=== PATIENT | male | born 1975 | race Caucasian/White ===

== ENCOUNTER 2016-06-14 11:45 | Inpatient (IN) | payer OTHER ==
[2016-06-14 12:38] VITALS: BMI 40.6
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
[2016-06-14] MEDS ORDERED: MAG HYDROX/AL HYDROX/SIMETH 30 ML UNIT-DOSE CUP PO PRN (14:18)
[2016-06-14] MEDS ORDERED: LOPERAMIDE HCL 2 MG CAPSULE PO PRN (14:18)
[2016-06-14] MEDS ORDERED: NICOTINE POLACRILEX 4 MG GUM BUC PRN (14:18)
[2016-06-14] MEDS ORDERED: P-EPHED 60MG/TRIPROLIDI 2.5MG TABLET PO PRN (14:18)
[2016-06-14] MEDS ORDERED: ACETAMINOPHEN 325 MG TABLET (FP) PO PRN (14:18)
[2016-06-14] MEDS ORDERED: ALBUTEROL SO4 6.7 GM HFA INHALER IH PRN (14:19)
[2016-06-14] MEDS ORDERED: CYCLOBENZAPRINE HCL 10 MG TABLET (FP) PO PRN (14:21)
[2016-06-14 16:04] LABS: MCH 28.8 pg (25.7-33.7); MCHC 33.1 g/dl (32.0-35.9); MEAN CELL VOLUME 87.2 fl (80-96); PLATELET COUNT 180 K/MM3 (134-434); WHITE BLOOD COUNT 8.5 K/mm3 (4.0-10.0)
[2016-06-14 16:06] LABS: ALBUMIN 3.9 g/dl (3.4-5.0); ALK PHOS 140 U/L (45-117); ANION GAP 7 (8-16); BILIRUBIN,TOTAL 0.2 mg/dL (0.2-1.0); CALCIUM 8.6 mg/dL (8.5-10.1); CO2 30 mmol/L (21-32); CREATININE 0.9 mg/dL (0.7-1.3); GLUCOSE,RANDOM 78 mg/dL (74-106); SGOT/AST 33 U/L (15-37); SGPT/ALT 32 U/L (12-78); TOT PROT 6.6 g/dl (6.4-8.2)
[2016-06-14] MEDS ORDERED: TUBERCULIN PPD 5 TU/0.1ML VIAL ID ONE (19:20)
[2016-06-14 20:33] LABS: URINE APPEARANCE CLEAR; URINE BILIRUBIN NEGATIVE (NEGATIVE); URINE BLOOD NEGATIVE (NEGATIVE); URINE COLOR STRAW; URINE GLUCOSE (UA) NEGATIVE (NEGATIVE); URINE KETONE NEGATIVE (NEGATIVE); URINE LEUK ESTERASE NEGATIVE (NEGATIVE); URINE NITRITE NEGATIVE (NEGATIVE); URINE PROTEIN NEGATIVE (NEGATIVE); URINE UROBILINOGEN NEGATIVE E.U./dl (0.2-1.0)
[2016-06-14] MEDS ORDERED: NAPROXEN 500 MG TABLET (FP) PO SCH (22:00)
[2016-06-14] MEDS: PANTOPRAZOLE 20 MG TABLET (FP) PO SCH (22:06)
[2016-06-14] MEDS: THIAMINE HCL 100 MG TABLET (FP) PO SCH (22:06)
[2016-06-14] MEDS: NAPROXEN 500 MG TABLET (FP) PO SCH (22:06)
[2016-06-15] MEDS: diphenhydrAMINE HCL 50 MG CAPSULE PO PRN (01:17)
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
[2016-06-15] MEDS ORDERED: METHADONE HCL 40 MG DISPERSABLE TABLET PO SCH (07:45)
[2016-06-15] MEDS ORDERED: METHADONE 120 MG, METHADONE 5 MG PO SCH (09:25)
--- NOTE | 2016-06-15 09:51 | PN ---
Psychiatric Progress Note Vital Signs: Vital Signs Period Temp Pulse Resp BP Sys/Chowdhury Pulse Ox Last 24 Hr 97.4 F 56 18-22 113/64 Date of Session: 06/15/16 Chief Complaint:: Psychiatrist Discharge Note HPI: Patient addressing Alcohol Dependence comorbid with Nicotine Dependence and Anxiety Disorder Current Medications: Active Medications Generic Name Dose Route Start Last Admin Trade Name Freq PRN Reason Stop Dose Admin Acetaminophen 650 mg 06/14/16 14:18 Tylenol - PO Q4H PRN PAIN Al Hydroxide/Mg Hydroxide 30 ml 06/14/16 14:18 Mylanta Oral Suspension - PO Q6H PRN DYSPEPSIA Albuterol Sulfate 2 puff 06/14/16 14:19 Ventolin Hfa Inhaler - IH Q4H PRN ASTHMA Cyclobenzaprine HCl 10 mg 06/14/16 14:21 Flexeril - PO TID PRN MUSCLE SPASMS Diphenhydramine HCl 50 mg 06/14/16 22:00 06/15/16 01:17 Benadryl - PO 50 mg HSMR1 PRN Administration INSOMNIA Eucalyptus/Menthol/Phenol/Sorbitol 1 each 06/14/16 14:18 Cepastat Lozenge - MM Q4H PRN SORE THROAT Guaifenesin 10 ml 06/14/16 14:18 Robitussin Dm - PO Q6H PRN COUGH Hydroxyzine Pamoate 50 mg 06/14/16 14:18 Vistaril - PO Q4H PRN AGITATION Loperamide HCl 4 mg 06/14/16 14:18 Imodium - PO Q6H PRN DIARRHEA Magnesium Citrate 300 ml 06/14/16 14:18 Citroma - PO Q48H PRN CONSTIPATION Magnesium Hydroxide 30 ml 06/14/16 14:18 Milk Of Magnesia - PO DAILY PRN CONSTIPATION Methadone HCl 120 mg/ 125 mg 06/15/16 09:25 Methadone HCl 5 mg PO DAILY@0600 JAKE Naproxen 500 mg 06/14/16 22:00 06/14/16 22:06 Naprosyn - PO Not Given BID JAKE Nicotine 21 mg 06/15/16 10:00 Nicoderm Patch - TD DAILY JAKE Nicotine Polacrilex 4 mg 06/14/16 14:18 Nicorette Gum - BUC Q2H PRN NICOTINE REPLACEMENT RX Pantoprazole Sodium 20 mg 06/14/16 22:00 06/14/16 22:06 Protonix - PO Not Given BID JAKE Multivit/Folic Acid/Iron 1 tab 06/15/16 10:00 Vitamins (Sjr) - PO DAILY JAKE Pseudoephedrine/Triprolidine 1 combo 06/14/16 14:18 Actifed - PO TID PRN NASAL CONGESTION Thiamine HCl 100 mg 06/14/16 22:00 06/14/16 22:06 Vitamin B1 - PO Not Given HS JAKE Current Side Effect: No Lab tests ordered: Yes Lab tests reviewed: Yes Provider note:: Patient will complete this program on 06/16/16. He has met his treatment goals and will continue to address his issues in outpatient treatment at [facility] at [address] [place] [address]. He is stablefor discharge on 06/16/16 Total face to face time:: 35 Psychiatric Treatment Plan - Problem List (1) Cocaine dependence Current Visit: Yes (2) Cannabis dependence Current Visit: Yes (3) PCP dependence Current Visit: Yes (4) Opioid dependence on agonist therapy Current Visit: Yes (5) Nicotine dependence Current Visit: Yes Qualifiers: Nicotine product type: cigarettes Substance use status: uncomplicated Qualified Code(s): F17.210 - Nicotine dependence, cigarettes, uncomplicated
[2016-06-15] MEDS ORDERED: METHADONE HCL 5 MG TABLET ONE (10:02)
[2016-06-15] MEDS ORDERED: METHADONE HCL 40 MG DISPERSABLE TABLET ONE (10:02)
[2016-06-15] MEDS: PRENATAL VITAMINS W/ FOLIC ACID TABLET (FP) PO SCH (10:10)
[2016-06-15] MEDS: NAPROXEN 500 MG TABLET (FP) PO SCH ×2 (10:10→21:44)
[2016-06-15] MEDS: PANTOPRAZOLE 20 MG TABLET (FP) PO SCH ×2 (10:10→21:44)
[2016-06-15] MEDS: NICOTINE 21 MG/24 HOURS TOPICAL PATCH TD SCH (10:11)
[2016-06-15 12:15] LABS: HIV 1 & 2 AB NEGATIVE; HIV 1 AGp24 NEGATIVE
--- NOTE | 2016-06-15 12:42 | EKG ---
Test Reason : Blood Pressure : / mmHG Vent. Rate : 059 BPM Atrial Rate : 059 BPM P-R Int : 152 ms QRS Dur : 124 ms QT Int : 458 ms P-R-T Axes : 045 027 025 degrees QTc Int : 453 ms SINUS BRADYCARDIA RSR' OR QR PATTERN IN V1 SUGGESTS RIGHT VENTRICULAR CONDUCTION DELAY BORDERLINE ECG NO PREVIOUS ECGS AVAILABLE Confirmed by ARGELIA RAI MD ([id number]) on 06/15/2016 12:41:50 PM Referred By: Confirmed By:ARGELIA RAI MD
[2016-06-15] MEDS: hydrOXYzine PAMOATE 50 MG CAPSULE (FP) PO PRN (15:32)
[2016-06-15] MEDS: traZODone HCL 100 MG TABLET (FP) PO SCH (21:44)
[2016-06-15] MEDS: THIAMINE HCL 100 MG TABLET (FP) PO SCH (21:44)
[2016-06-15] MEDS ORDERED: PT OWN MED DRAWER 7, Y5N ONE (23:56)
[2016-06-16] MEDS ORDERED: METHADONE HCL 10 MG TABLET ONE (05:45)
[2016-06-16] MEDS ORDERED: METHADONE HCL 5 MG TABLET ONE (05:45)
[2016-06-16] MEDS ORDERED: METHADONE HCL 40 MG DISPERSABLE TABLET ONE (05:45)
[2016-06-16] MEDS ORDERED: METHADONE HCL 40 MG DISPERSABLE TABLET PO SCH (06:00)
[2016-06-16] MEDS: METHADONE 80 MG, METHADONE 30 MG, METHADONE 5 MG PO SCH (06:56)
[2016-06-16] MEDS: MAGNESIUM HYDROX 2400MG/30ML ORAL SUSPENSION 30 ML CUP PO PRN (06:57)
[2016-06-16] MEDS: NAPROXEN 500 MG TABLET (FP) PO SCH ×2 (09:56→21:37)
[2016-06-16] MEDS: PRENATAL VITAMINS W/ FOLIC ACID TABLET (FP) PO SCH (09:56)
[2016-06-16] MEDS: PANTOPRAZOLE 20 MG TABLET (FP) PO SCH ×2 (09:56→21:38)
[2016-06-16] MEDS: NICOTINE 21 MG/24 HOURS TOPICAL PATCH TD SCH (09:56)
[2016-06-16] MEDS: hydrOXYzine PAMOATE 50 MG CAPSULE (FP) PO PRN (18:04)
[2016-06-16] MEDS: THIAMINE HCL 100 MG TABLET (FP) PO SCH (21:37)
[2016-06-16] MEDS: guaiFENesin/D-METHORPHAN HB 10 ML UNIT-DOSE CUPS PO PRN (21:38)
[2016-06-16] MEDS: traZODone HCL 100 MG TABLET (FP) PO SCH (21:38)
[2016-06-16] MEDS: MENTHOL/PHENOL 1 EACH UD MM PRN (21:38)
[2016-06-17] MEDS ORDERED: METHADONE HCL 10 MG TABLET ONE (04:58)
[2016-06-17] MEDS ORDERED: METHADONE HCL 40 MG DISPERSABLE TABLET ONE (04:58)
[2016-06-17] MEDS ORDERED: METHADONE HCL 5 MG TABLET ONE (04:59)
[2016-06-17] MEDS: METHADONE 80 MG, METHADONE 30 MG, METHADONE 5 MG PO SCH (06:47)
[2016-06-17] MEDS: guaiFENesin/D-METHORPHAN HB 10 ML UNIT-DOSE CUPS PO PRN ×2 (06:51→15:46)
[2016-06-17] MEDS: MENTHOL/PHENOL 1 EACH UD MM PRN ×2 (06:52→15:46)
[2016-06-17] MEDS: PRENATAL VITAMINS W/ FOLIC ACID TABLET (FP) PO SCH (10:00)
[2016-06-17] MEDS: NAPROXEN 500 MG TABLET (FP) PO SCH ×2 (10:13→21:35)
[2016-06-17] MEDS: PANTOPRAZOLE 20 MG TABLET (FP) PO SCH ×2 (10:14→21:34)
[2016-06-17] MEDS: NICOTINE 21 MG/24 HOURS TOPICAL PATCH TD SCH (10:14)
[2016-06-17] MEDS: traZODone HCL 100 MG TABLET (FP) PO SCH (21:34)
[2016-06-17] MEDS: diphenhydrAMINE HCL 50 MG CAPSULE PO PRN (21:34)
[2016-06-17] MEDS: THIAMINE HCL 100 MG TABLET (FP) PO SCH (21:34)
[2016-06-18] MEDS ORDERED: METHADONE HCL 10 MG TABLET ONE (04:19)
[2016-06-18] MEDS ORDERED: METHADONE HCL 5 MG TABLET ONE (04:19)
[2016-06-18] MEDS ORDERED: METHADONE HCL 40 MG DISPERSABLE TABLET ONE (04:19)
[2016-06-18] MEDS: METHADONE 80 MG, METHADONE 30 MG, METHADONE 5 MG PO SCH (05:54)
[2016-06-18] MEDS: NAPROXEN 500 MG TABLET (FP) PO SCH ×2 (10:04→22:08)
[2016-06-18] MEDS: PRENATAL VITAMINS W/ FOLIC ACID TABLET (FP) PO SCH (10:04)
[2016-06-18] MEDS: NICOTINE 21 MG/24 HOURS TOPICAL PATCH TD SCH (10:04)
[2016-06-18] MEDS: PANTOPRAZOLE 20 MG TABLET (FP) PO SCH ×2 (10:04→22:08)
[2016-06-18] MEDS: hydrOXYzine PAMOATE 50 MG CAPSULE (FP) PO PRN (17:32)
[2016-06-18] MEDS: traZODone HCL 100 MG TABLET (FP) PO SCH (22:08)
[2016-06-18] MEDS: THIAMINE HCL 100 MG TABLET (FP) PO SCH (22:08)
[2016-06-18] MEDS: diphenhydrAMINE HCL 50 MG CAPSULE PO PRN (22:08)
[2016-06-19] MEDS ORDERED: METHADONE HCL 10 MG TABLET ONE (05:32)
[2016-06-19] MEDS ORDERED: METHADONE HCL 5 MG TABLET ONE (05:32)
[2016-06-19] MEDS ORDERED: METHADONE HCL 40 MG DISPERSABLE TABLET ONE (05:32)
[2016-06-19] MEDS: METHADONE 80 MG, METHADONE 30 MG, METHADONE 5 MG PO SCH (06:01)
[2016-06-19] MEDS: PANTOPRAZOLE 20 MG TABLET (FP) PO SCH ×2 (09:53→21:29)
[2016-06-19] MEDS: NAPROXEN 500 MG TABLET (FP) PO SCH ×2 (09:53→21:29)
[2016-06-19] MEDS: PRENATAL VITAMINS W/ FOLIC ACID TABLET (FP) PO SCH (09:53)
[2016-06-19] MEDS: hydrOXYzine PAMOATE 50 MG CAPSULE (FP) PO PRN ×2 (09:55→15:59)
[2016-06-19] MEDS: MAGNESIUM HYDROX 2400MG/30ML ORAL SUSPENSION 30 ML CUP PO PRN (09:55)
[2016-06-19] MEDS: NICOTINE 21 MG/24 HOURS TOPICAL PATCH TD SCH (14:46)
[2016-06-19] MEDS: THIAMINE HCL 100 MG TABLET (FP) PO SCH (21:28)
[2016-06-19] MEDS: traZODone HCL 100 MG TABLET (FP) PO SCH (21:29)
[2016-06-19] MEDS: diphenhydrAMINE HCL 50 MG CAPSULE PO PRN (21:29)
[2016-06-20] MEDS ORDERED: METHADONE HCL 5 MG TABLET ONE (05:23)
[2016-06-20] MEDS ORDERED: METHADONE HCL 10 MG TABLET ONE (05:23)
[2016-06-20] MEDS ORDERED: METHADONE HCL 40 MG DISPERSABLE TABLET ONE (05:23)
[2016-06-20] MEDS: METHADONE 80 MG, METHADONE 30 MG, METHADONE 5 MG PO SCH (06:17)
[2016-06-20] MEDS: NICOTINE 21 MG/24 HOURS TOPICAL PATCH TD SCH (09:52)
[2016-06-20] MEDS: NAPROXEN 500 MG TABLET (FP) PO SCH ×2 (09:53→22:02)
[2016-06-20] MEDS: PRENATAL VITAMINS W/ FOLIC ACID TABLET (FP) PO SCH (09:53)
[2016-06-20] MEDS: PANTOPRAZOLE 20 MG TABLET (FP) PO SCH ×2 (09:53→22:02)
[2016-06-20] MEDS: MAGNESIUM CITRATE 300 ML BOTTLE PO PRN (14:25)
[2016-06-20] MEDS: traZODone HCL 100 MG TABLET (FP) PO SCH (22:02)
[2016-06-20] MEDS: THIAMINE HCL 100 MG TABLET (FP) PO SCH (22:02)
[2016-06-21] MEDS ORDERED: METHADONE HCL 10 MG TABLET ONE (03:14)
[2016-06-21] MEDS ORDERED: METHADONE HCL 40 MG DISPERSABLE TABLET ONE (03:14)
[2016-06-21] MEDS ORDERED: METHADONE HCL 5 MG TABLET ONE (03:14)
[2016-06-21] MEDS: METHADONE 80 MG, METHADONE 30 MG, METHADONE 5 MG PO SCH (06:08)
[2016-06-21] MEDS: NICOTINE 21 MG/24 HOURS TOPICAL PATCH TD SCH (10:07)
[2016-06-21] MEDS: PANTOPRAZOLE 20 MG TABLET (FP) PO SCH ×2 (10:07→21:04)
[2016-06-21] MEDS: NAPROXEN 500 MG TABLET (FP) PO SCH ×2 (10:07→21:04)
[2016-06-21] MEDS: PRENATAL VITAMINS W/ FOLIC ACID TABLET (FP) PO SCH (10:07)
[2016-06-21] MEDS: hydrOXYzine PAMOATE 50 MG CAPSULE (FP) PO PRN ×2 (10:09→14:15)
[2016-06-21] MEDS: THIAMINE HCL 100 MG TABLET (FP) PO SCH (21:04)
[2016-06-21] MEDS: traZODone HCL 100 MG TABLET (FP) PO SCH (21:04)
[2016-06-22] MEDS ORDERED: METHADONE HCL 10 MG TABLET ONE (05:54)
[2016-06-22] MEDS ORDERED: METHADONE HCL 40 MG DISPERSABLE TABLET ONE (05:54)
[2016-06-22] MEDS ORDERED: METHADONE HCL 5 MG TABLET ONE (05:55)
[2016-06-22] MEDS: METHADONE 80 MG, METHADONE 30 MG, METHADONE 5 MG PO SCH (06:30)
[2016-06-22] MEDS: PANTOPRAZOLE 20 MG TABLET (FP) PO SCH ×2 (10:01→22:13)
[2016-06-22] MEDS: NICOTINE 21 MG/24 HOURS TOPICAL PATCH TD SCH (10:01)
[2016-06-22] MEDS: PRENATAL VITAMINS W/ FOLIC ACID TABLET (FP) PO SCH (10:01)
[2016-06-22] MEDS: NAPROXEN 500 MG TABLET (FP) PO SCH ×2 (10:01→22:13)
[2016-06-22] MEDS: hydrOXYzine PAMOATE 50 MG CAPSULE (FP) PO PRN (10:02)
[2016-06-22] MEDS: THIAMINE HCL 100 MG TABLET (FP) PO SCH (22:12)
[2016-06-22] MEDS: traZODone HCL 100 MG TABLET (FP) PO SCH (22:13)
[2016-06-23] MEDS ORDERED: METHADONE HCL 40 MG DISPERSABLE TABLET ONE (04:12)
[2016-06-23] MEDS ORDERED: METHADONE HCL 10 MG TABLET ONE (04:12)
[2016-06-23] MEDS ORDERED: METHADONE HCL 5 MG TABLET ONE (04:12)
[2016-06-23] MEDS: METHADONE 80 MG, METHADONE 30 MG, METHADONE 5 MG PO SCH (06:41)
[2016-06-23] MEDS: hydrOXYzine PAMOATE 50 MG CAPSULE (FP) PO PRN (09:51)
[2016-06-23] MEDS: PANTOPRAZOLE 20 MG TABLET (FP) PO SCH ×2 (09:51→21:59)
[2016-06-23] MEDS: PRENATAL VITAMINS W/ FOLIC ACID TABLET (FP) PO SCH (09:51)
[2016-06-23] MEDS: NAPROXEN 500 MG TABLET (FP) PO SCH ×2 (09:52→21:59)
[2016-06-23] MEDS: NICOTINE 21 MG/24 HOURS TOPICAL PATCH TD SCH (09:53)
[2016-06-23] MEDS: MAGNESIUM CITRATE 300 ML BOTTLE PO PRN (18:46)
[2016-06-23] MEDS: diphenhydrAMINE HCL 50 MG CAPSULE PO PRN (21:59)
[2016-06-23] MEDS: traZODone HCL 100 MG TABLET (FP) PO SCH (21:59)
[2016-06-23] MEDS: THIAMINE HCL 100 MG TABLET (FP) PO SCH (21:59)
[2016-06-24] MEDS ORDERED: METHADONE HCL 40 MG DISPERSABLE TABLET ONE (03:11)
[2016-06-24] MEDS ORDERED: METHADONE HCL 10 MG TABLET ONE (03:11)
[2016-06-24] MEDS ORDERED: METHADONE HCL 5 MG TABLET ONE (03:12)
[2016-06-24] MEDS: METHADONE 80 MG, METHADONE 30 MG, METHADONE 5 MG PO SCH (06:13)
[2016-06-24] MEDS: PRENATAL VITAMINS W/ FOLIC ACID TABLET (FP) PO SCH (09:43)
[2016-06-24] MEDS: NAPROXEN 500 MG TABLET (FP) PO SCH ×2 (09:43→21:38)
[2016-06-24] MEDS: PANTOPRAZOLE 20 MG TABLET (FP) PO SCH ×2 (09:43→21:38)
[2016-06-24] MEDS: hydrOXYzine PAMOATE 50 MG CAPSULE (FP) PO PRN (09:43)
[2016-06-24] MEDS: NICOTINE 21 MG/24 HOURS TOPICAL PATCH TD SCH (09:44)
--- NOTE | 2016-06-24 12:07 | PN ---
B[facility] Progress Note Note: VARICOSE VEIN LEGS.WOULD LIKE METHADONE TO REDUCE TO 105 MGS PO DAILY FROM 06/25
[2016-06-24] MEDS: diphenhydrAMINE HCL 50 MG CAPSULE PO PRN (21:38)
[2016-06-24] MEDS: traZODone HCL 100 MG TABLET (FP) PO SCH (21:38)
[2016-06-24] MEDS: THIAMINE HCL 100 MG TABLET (FP) PO SCH (21:39)
[2016-06-25] MEDS ORDERED: METHADONE HCL 40 MG DISPERSABLE TABLET ONE (05:44)
[2016-06-25] MEDS ORDERED: METHADONE HCL 10 MG TABLET ONE (05:44)
[2016-06-25] MEDS ORDERED: METHADONE HCL 5 MG TABLET ONE (05:44)
[2016-06-25] MEDS ORDERED: METHADONE HCL 10 MG TABLET PO SCH (06:00)
[2016-06-25] MEDS ORDERED: METHADONE 80 MG, METHADONE 20 MG, METHADONE 5 MG PO SCH ×2 (06:00)
[2016-06-25] MEDS: METHADONE 80 MG, METHADONE 20 MG, METHADONE 5 MG PO SCH (06:26)
[2016-06-25] MEDS: NAPROXEN 500 MG TABLET (FP) PO SCH ×2 (09:43→21:59)
[2016-06-25] MEDS: PANTOPRAZOLE 20 MG TABLET (FP) PO SCH ×2 (09:43→21:59)
[2016-06-25] MEDS: PRENATAL VITAMINS W/ FOLIC ACID TABLET (FP) PO SCH (09:43)
[2016-06-25] MEDS: NICOTINE 21 MG/24 HOURS TOPICAL PATCH TD SCH (09:43)
[2016-06-25] MEDS: THIAMINE HCL 100 MG TABLET (FP) PO SCH (21:58)
[2016-06-25] MEDS: traZODone HCL 100 MG TABLET (FP) PO SCH (21:59)
[2016-06-26] MEDS ORDERED: METHADONE HCL 5 MG TABLET ONE (05:22)
[2016-06-26] MEDS ORDERED: METHADONE HCL 10 MG TABLET ONE (05:22)
[2016-06-26] MEDS ORDERED: METHADONE HCL 40 MG DISPERSABLE TABLET ONE (05:22)
[2016-06-26] MEDS: METHADONE 80 MG, METHADONE 20 MG, METHADONE 5 MG PO SCH (07:15)
[2016-06-26] MEDS: MAGNESIUM HYDROX 2400MG/30ML ORAL SUSPENSION 30 ML CUP PO PRN (07:19)
[2016-06-26] MEDS: PANTOPRAZOLE 20 MG TABLET (FP) PO SCH ×2 (09:37→21:48)
[2016-06-26] MEDS: PRENATAL VITAMINS W/ FOLIC ACID TABLET (FP) PO SCH (09:37)
[2016-06-26] MEDS: NAPROXEN 500 MG TABLET (FP) PO SCH ×2 (09:38→21:48)
[2016-06-26] MEDS: NICOTINE 21 MG/24 HOURS TOPICAL PATCH TD SCH (09:38)
[2016-06-26] MEDS: hydrOXYzine PAMOATE 50 MG CAPSULE (FP) PO PRN (11:32)
[2016-06-26] MEDS: THIAMINE HCL 100 MG TABLET (FP) PO SCH (21:47)
[2016-06-26] MEDS: traZODone HCL 100 MG TABLET (FP) PO SCH (21:48)
[2016-06-27] MEDS ORDERED: METHADONE HCL 10 MG TABLET ONE (05:41)
[2016-06-27] MEDS ORDERED: METHADONE HCL 5 MG TABLET ONE (05:41)
[2016-06-27] MEDS ORDERED: METHADONE HCL 40 MG DISPERSABLE TABLET ONE (05:41)
[2016-06-27] MEDS: METHADONE 80 MG, METHADONE 20 MG, METHADONE 5 MG PO SCH (06:01)
[2016-06-27] MEDS: PRENATAL VITAMINS W/ FOLIC ACID TABLET (FP) PO SCH (10:00)
[2016-06-27] MEDS: NAPROXEN 500 MG TABLET (FP) PO SCH ×2 (10:00→21:17)
[2016-06-27] MEDS: PANTOPRAZOLE 20 MG TABLET (FP) PO SCH ×2 (10:00→21:18)
[2016-06-27] MEDS: NICOTINE 21 MG/24 HOURS TOPICAL PATCH TD SCH (10:01)
[2016-06-27] MEDS ORDERED: ARTIFICIAL TEARS (POLYVINYL ALCOHOL 1.4%) OPTH DROPS OU PRN (14:26)
--- NOTE | 2016-06-27 16:35 | PN ---
[id number] 66 16-18 140/92 Date of Session: 06/27/16 Chief Complaint:: Discharge visit HPI: Patient addresed Cannabis,Cocaine and Opioid,PCP dependence comorbid with Substance induced mood dsorder. ROS: Significant for BA,GERD. Current Medications: Active Medications Generic Name Dose Route Start Last Admin Trade Name Freq PRN Reason Stop Dose Admin Acetaminophen 650 mg 06/14/16 14:18 Tylenol - PO Q4H PRN PAIN Al Hydroxide/Mg Hydroxide 30 ml 06/14/16 14:18 06/25/16 20:17 Mylanta Oral Suspension - PO 30 ml Q6H PRN Administration DYSPEPSIA Albuterol Sulfate 2 puff 06/14/16 14:19 06/18/16 07:01 Ventolin Hfa Inhaler - IH 2 inh Q4H PRN Administration ASTHMA Artificial Tears 1 drop 06/27/16 14:26 Artificial Tears OU TID PRN DRY EYES Cyclobenzaprine HCl 10 mg 06/14/16 14:21 06/21/16 17:09 Flexeril - PO 10 mg TID PRN Administration MUSCLE SPASMS Diphenhydramine HCl 50 mg 06/14/16 22:00 06/24/16 21:38 Benadryl - PO 50 mg HSMR1 PRN Administration INSOMNIA Eucalyptus/Menthol/Phenol/Sorbitol 1 each 06/14/16 14:18 06/17/16 15:46 Cepastat Lozenge - MM 1 each Q4H PRN Administration SORE THROAT Guaifenesin 10 ml 06/14/16 14:18 06/17/16 15:46 Robitussin Dm - PO 10 ml Q6H PRN Administration COUGH Hydroxyzine Pamoate 50 mg 06/14/16 14:18 06/26/16 11:32 Vistaril - PO 50 mg Q4H PRN Administration AGITATION Loperamide HCl 4 mg 06/14/16 14:18 Imodium - PO Q6H PRN DIARRHEA Magnesium Citrate 300 ml 06/14/16 14:18 06/23/16 18:46 Citroma - PO 300 ml Q48H PRN Administration CONSTIPATION Magnesium Hydroxide 30 ml 06/14/16 14:18 06/26/16 07:19 Milk Of Magnesia - PO 30 ml DAILY PRN Administration CONSTIPATION Methadone HCl 80 mg/ Methadone 105 mg 06/25/16 06:00 06/27/16 06:01 HCl 20 mg/ Methadone HCl 5 mg PO 07/01/16 05:59 105 mg DAILY@0600 JAKE Administration Naproxen 500 mg 06/14/16 22:00 06/27/16 10:00 Naprosyn - PO 500 mg BID JAKE Administration Nicotine 21 mg 06/15/16 10:00 06/27/16 10:01 Nicoderm Patch - TD Not Given DAILY JAKE Nicotine Polacrilex 4 mg 06/14/16 14:18 06/15/16 20:47 Nicorette Gum - BUC 4 mg Q2H PRN Administration NICOTINE REPLACEMENT RX Pantoprazole Sodium 20 mg 06/14/16 22:00 06/27/16 10:00 Protonix - PO 20 mg BID JAKE Administration Multivit/Folic Acid/Iron 1 tab 06/15/16 10:00 06/27/16 10:00 Vitamins (Sjr) - PO 1 tab DAILY JAKE Administration Pseudoephedrine/Triprolidine 1 combo 06/14/16 14:18 Actifed - PO TID PRN NASAL CONGESTION Thiamine HCl 100 mg 06/14/16 22:00 06/26/16 21:47 Vitamin B1 - PO 100 mg HS JAKE Administration Trazodone HCl 100 mg 06/15/16 22:00 06/26/16 21:48 Desyrel - PO 100 mg HS JAKE Administration Current Side Effect: No Lab tests ordered: No Lab tests reviewed: Yes Provider note:: Patient will completed this program tomorrow 06/28/16.He has met his treatment goals and will continue to address his issues on outpatient basis. Patient identifies areas of difficulties and ways,support he can utilize to maintain recovery. Patient is stable for discharge tomorrow. Total face to face time:: 30 Mental Status Exam - Mental Status Exam Cognitive Function: Grossly Intact Patient Appearance: Well Groomed Mood: Expansive, Euthymic Affect: Mood Congruent Patient Behavior: Cooperative Speech Pattern: Clear Voice Loudness: Normal Thought Process: Goal Oriented Thought Disorder: Not Present Hallucinations: Denies Suicidal Ideation: Denies Homicidal Ideation: Denies Insight/Judgement: Fair Sleep: Fair Appetite: Good Muscle strength/Tone: Normal Gait/Station: Normal Psychiatric Treatment Plan - Problem List (7) Bronchial asthma Qualifiers: Asthma severity: mild intermittent Asthma complication type: uncomplicated Qualified Code(s): J45.20 - Mild intermittent asthma, uncomplicated
[2016-06-27] MEDS: traZODone HCL 100 MG TABLET (FP) PO SCH (21:16)
[2016-06-27] MEDS: THIAMINE HCL 100 MG TABLET (FP) PO SCH (21:16)
[2016-06-27] MEDS: hydrOXYzine PAMOATE 50 MG CAPSULE (FP) PO PRN (21:18)
[2016-06-28] MEDS ORDERED: METHADONE HCL 40 MG DISPERSABLE TABLET ONE (04:08)
[2016-06-28] MEDS ORDERED: METHADONE HCL 10 MG TABLET ONE (04:08)
[2016-06-28] MEDS ORDERED: METHADONE HCL 5 MG TABLET ONE (04:09)
[2016-06-28] MEDS: METHADONE 80 MG, METHADONE 20 MG, METHADONE 5 MG PO SCH (06:48)
[2016-06-28 07:12] VITALS: BP 135/82; PULSE 76; TEMP 98.2
[2016-06-28] MEDS ORDERED: PT OWN MED DRAWER 7, Y5N ONE (08:48)
== END 2016-06-28 08:45 | disposition home or self-care (01) | DRG 772 ==
LOC: YASAS 11:45 → Y3W 15:09
PROVIDERS: ADMIT Psychiatry & Neurology Psychiatry; ATTEND Psychiatry & Neurology Psychiatry
PROC: HZ42ZZZ Group Counseling for Substance Abuse Treatment, Cognitive-Behavioral (ICD-10-PCS; principal; 2016-06-28)
DX: F11.20 Opioid dependence, uncomplicated (principal); F14.20 Cocaine dependence, uncomplicated; F16.20 Hallucinogen dependence, uncomplicated; F12.20 Cannabis dependence, uncomplicated; F17.210 Nicotine dependence, cigarettes, uncomplicated; F19.24 Other psychoactive substance dependence with psychoactive substance-induced mood disorder; K21.9 Gastro-esophageal reflux disease without esophagitis; M23.207 Derangement of unspecified meniscus due to old tear or injury, left knee; M23.206 Derangement of unspecified meniscus due to old tear or injury, right knee
CPT/HCPCS: 36415; 80053; 81003; 85027; 86593; 87389; 93005; 93010

== ENCOUNTER 2017-09-02 14:56 | Inpatient (IN) | payer OTHER ==
[2017-09-02 16:31] VITALS: BMI 45.2
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
[2017-09-02] MEDS ORDERED: MAGNESIUM CITRATE 300 ML BOTTLE PO PRN (18:31)
[2017-09-02] MEDS ORDERED: LOPERAMIDE HCL 2 MG CAPSULE PO PRN (18:31)
[2017-09-02] MEDS ORDERED: P-EPHED 60MG/TRIPROLIDI 2.5MG TABLET PO PRN (18:31)
[2017-09-02] MEDS ORDERED: MENTHOL/PHENOL 1 EACH UD MM PRN (18:31)
[2017-09-02] MEDS ORDERED: hydrOXYzine PAMOATE 50 MG CAPSULE (FP) PO PRN (18:31)
[2017-09-02] MEDS ORDERED: guaiFENesin/D-METHORPHAN HB 10 ML UNIT-DOSE CUPS PO PRN (18:31)
[2017-09-02] MEDS ORDERED: chlordiazePOXIDE HCL 25 MG CAPSULE PO PRN (18:31)
[2017-09-02] MEDS ORDERED: ACETAMINOPHEN 325 MG TABLET (FP) PO PRN (18:31)
[2017-09-02] MEDS ORDERED: IBUPROFEN 400 MG TABLET (FP) PO PRN (18:31)
[2017-09-02] MEDS ORDERED: MAG HYDROX/AL HYDROX/SIMETH 30 ML UNIT-DOSE CUP PO PRN (18:31)
[2017-09-02] MEDS ORDERED: MAGNESIUM HYDROX 2400MG/30ML ORAL SUSPENSION 30 ML CUP PO PRN (18:31)
[2017-09-02] MEDS ORDERED: HYDROCORTISONE 0.5% TOPICAL CREAM 30 GM TUBE TP PRN (18:37)
[2017-09-02] MEDS ORDERED: ALBUTEROL SO4 18 GM HFA INHALER IH PRN (19:07)
[2017-09-02] MEDS: NICOTINE 14 MG/24 HOURS TOPICAL PATCH TD SCH (19:29)
--- NOTE | 2017-09-02 19:39 | PN ---
S Progress Note Note: Pt's EKG abnormal. Pt A & O x 3, denies any complaint at this time, eating and ambulating without distress on floor. Aspirin ordered. Will repeat EKG in a.m
[2017-09-02] MEDS ORDERED: ASPIRIN 81 MG CHEWABLE TABLETS PO ONE (19:45)
[2017-09-02] MEDS ORDERED: THIAMINE HCL 100 MG TABLET (FP) PO SCH (22:00)
[2017-09-02] MEDS ORDERED: MELATONIN 5 MG TABLETS PO PRN (22:00)
[2017-09-02] MEDS: chlordiazePOXIDE HCL 25 MG CAPSULE PO SCH (23:13)
[2017-09-03] MEDS: chlordiazePOXIDE HCL 25 MG CAPSULE PO SCH ×2 (06:17→10:21)
[2017-09-03 09:59] LABS: HEMOGLOBIN 15.5 GM/dL (11.7-16.9); MCH 28.9 pg (25.7-33.7); MEAN CELL VOLUME 87.6 fl (80-96); MEAN PLT VOLUME 9.8 fl (7.5-11.1); PLATELET COUNT 134 K/MM3 (134-434); RBC 5.36 M/mm3 (4.00-5.60); RDW 14.1 % (11.9-15.9)
[2017-09-03] MEDS ORDERED: PRENATAL VITAMINS W/ FOLIC ACID TABLET (FP) PO SCH (10:00)
[2017-09-03 10:06] LABS: URINE APPEARANCE TURBID; URINE BILIRUBIN NEGATIVE (<2.0 mg/dL); URINE BLOOD 1+ (NEGATIVE); URINE COLOR AMBER; URINE GLUCOSE (UA) NEGATIVE (NEGATIVE); URINE KETONE NEGATIVE (NEGATIVE); URINE LEUK ESTERASE NEGATIVE (NEGATIVE); URINE NITRITE NEGATIVE (NEGATIVE); URINE UROBILINOGEN NEGATIVE mg/dL (0.2-1.0)
[2017-09-03 10:08] LABS: URINE PROTEIN 1+ (NEGATIVE)
[2017-09-03 10:12] LABS: URINE MUCUS RARE
[2017-09-03 10:15] LABS: CHLORIDE 110 mmol/L (98-107); POTASSIUM 4.4 mmol/L (3.5-5.1); SODIUM 142 mmol/L (136-145)
[2017-09-03 10:22] LABS: ALBUMIN 3.7 g/dl (3.4-5.0); ALK PHOS 135 U/L (45-117); ANION GAP 4 (8-16); BILIRUBIN,TOTAL 0.3 mg/dL (0.2-1.0); BLOOD UREA NITROGEN 17 mg/dL (7-18); CALCIUM 8.4 mg/dL (8.5-10.1); CO2 28 mmol/L (21-32); CREATININE 0.8 mg/dL (0.7-1.3); GLUCOSE,RANDOM 122 mg/dL (74-106); SGOT/AST 22 U/L (15-37); SGPT/ALT 21 U/L (12-78); TOT PROT 6.3 g/dl (6.4-8.2)
[2017-09-03] MEDS: NICOTINE 14 MG/24 HOURS TOPICAL PATCH TD SCH (10:24)
[2017-09-03] MEDS ORDERED: METHADONE HCL 10 MG TABLET (FOR DETOX USE ONLY) PO ONE (12:07)
[2017-09-03] MEDS ORDERED: METHADONE HCL 5 MG TABLET (FOR DETOX USE ONLY) ONE (12:25)
[2017-09-03] MEDS ORDERED: METHADONE HCL 40 MG DISPERSABLE TABLET ONE (12:26)
[2017-09-03] MEDS ORDERED: METHADONE PO ONE (12:30)
--- NOTE | 2017-09-03 15:30 | EKG ---
Test Reason : Blood Pressure : / mmHG Vent. Rate : 048 BPM Atrial Rate : 048 BPM P-R Int : 146 ms QRS Dur : 122 ms QT Int : 448 ms P-R-T Axes : 040 034 019 degrees QTc Int : 400 ms SINUS BRADYCARDIA RIGHT BUNDLE BRANCH BLOCK ABNORMAL ECG WHEN COMPARED WITH ECG OF 02-SEP-2017 19:19, NO SIGNIFICANT CHANGE WAS FOUND Confirmed by ARGELIA RAI MD ([id number]) on 09/03/2017 3:29:48 PM Referred By: Confirmed By:ARGELIA RAI MD
[2017-09-03] MEDS ORDERED: cloNIDine HCL 0.1 MG TABLET PO PRN (15:47)
--- NOTE | 2017-09-03 15:47 | PN ---
[facility] CIWA - CIWA Score Nausea/Vomitin Muscle Tremors: 3 Anxiety: 3 Agitation: 3 Paroxysmal Sweats: 3 Orientation: 0-Oriented Tacttile Disturbances: 0-None Auditory Disturbances: 0-None Visual Disturbances: 0-None Headache: 0-None Present CIWA-Ar Total Score: 14 BHS Progress Note (SOAP) Subjective: Refused to speak with journalists and other writers Objective: 09/03/17 15:43 Last Vital Signs Temp Pulse Resp BP Pulse Ox 96.2 F L 63 18 152/97 09/03/17 14:19 09/03/17 14:19 09/03/17 14:19 09/03/17 14:19 Noted with elevated b/p Laboratory Tests 09/02/17 09/03/17 09/03/17 08:00 06:00 06:00 WBC 6.0 RBC 5.36 Hgb 15.5 Hct 47.0 MCV 87.6 MCH 28.9 MCHC 33.0 RDW 14.1 Plt Count 134 D MPV 9.8 Sodium 142 Potassium 4.4 Chloride 110 H Carbon Dioxide 28 Anion Gap 4 L BUN 17 Creatinine 0.8 Creat Clearance w eGFR > 60 Random Glucose 122 H D Calcium 8.4 L Total Bilirubin 0.3 D AST 22 D ALT 21 D Alkaline Phosphatase 135 H Total Protein 6.3 L Albumin 3.7 Urine Color Vickie Urine Appearance Turbid Urine pH 5.0 Ur Specific [place] 1.021 Urine Protein 1+ H Urine Glucose (UA) Negative Urine Ketones Negative Urine Blood 1+ H Urine Nitrite Negative Urine Bilirubin Negative Urine Urobilinogen Negative Ur Leukocyte Esterase Negative Urine WBC (Auto) 1 Urine RBC (Auto) 4 Urine Mucus Rare RPR Titer HIV 1&2 Antibody Screen HIV P24 Antigen 09/03/17 09/03/17 06:00 08:00 WBC RBC Hgb Hct MCV MCH MCHC RDW Plt Count MPV Sodium Potassium Chloride Carbon Dioxide Anion Gap BUN Creatinine Creat Clearance w eGFR Random Glucose Calcium Total Bilirubin AST ALT Alkaline Phosphatase Total Protein Albumin Urine Color Urine Appearance Urine pH Ur Specific [place] Urine Protein Urine Glucose (UA) Urine Ketones Urine Blood Urine Nitrite Urine Bilirubin Urine Urobilinogen Ur Leukocyte Esterase Urine WBC (Auto) Urine RBC (Auto) Urine Mucus RPR Titer Nonreactive HIV 1&2 Antibody Screen Negative HIV P24 Antigen Negative Labs reviewed: abnormal UA Assessment: 09/03/17 15:44 Withdrawal symptoms Noted with elevated b/p and abnormal UA Plan: Continue detox Elevated b/p: clonidine 0.1mg PO q8hr prn Abnormal UA: encouraged to drink lots of water for hydration, repeat UA
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
[2017-09-03] MEDS ORDERED: DULoxetine HCL 20 MG CAPSULE.DR (FP) PO SCH (17:15)
[2017-09-03 18:13] VITALS: BP 127/82; PULSE 57; TEMP 97.5
--- NOTE | 2017-09-03 18:24 | PN ---
S Progress Note Note: Pt verbalized wanting to leave because "I really dont drink, they told me if I dont say so they wont take me and I really want to do Rehab. Pt encouraged to complete detox in 3 more days and then will be able to go to Rehab. Pt declines, insisted on leaving and keeps apologizing for "wasting everyone's time". Pt will leave AMA, verbalized understanding. Pt A & O x 3, gait steady and able to ambulate on unit
--- NOTE | 2017-09-03 18:28 | DS ---
[facility] Detox Discharge Summary Admission Date: 09/02/17 Discharge Date: 09/03/17 - History Additional Comments: Pt insisting on leaving the unit. Pt was admitted yesterday. Pt in no obvious acute distress. Pertinent Past History: Asthma - Physical Exam Results Vital Signs: Vital Signs Temperature 97.5 F L 09/03/17 18:13 Pulse Rate 57 L 09/03/17 18:13 Respiratory Rate 18 09/03/17 18:13 Blood Pressure 127/82 09/03/17 18:13 O2 Sat by Pulse Oximetry (%) Pertinent Admission Physical Exam Findings: withdrawal sx - Medication Discharge Medications: Ambulatory Orders Albuterol Sulfate Inhaler - [Ventolin Hfa Inhaler -] 2 inh PO Q4H PRN 06/14/16 Cyclobenzaprine HCl [Flexeril -] 10 mg PO HS PRN 06/14/16 Metaxalone [Skelaxin] 800 mg PO BID 06/14/16 Naproxen [Naprosyn -] 1,000 mg PO BID 06/14/16 Omeprazole 20 mg PO BID 06/14/16 Tizanidine HCl [Zanaflex] 4 mg PO BID 06/14/16 Tramadol HCl [Tramadol HCl ER] 150 mg PO DAILY 06/14/16 traZODone HCL [Desyrel -] 100 mg PO HS #30 tablet 06/27/16 Duloxetine HCl [Cymbalta -] 20 mg PO DAILY 09/02/17 Gabapentin [Neurontin -] 400 mg PO Q8H 09/02/17 Oxcarbazepine 600 mg PO DAILY 09/02/17 Pramipexole Dihydrochloride [Mirapex -] 1 mg PO HS 09/02/17 cloNIDine HCL [Catapres -] 0.3 mg PO HS 09/02/17 - Diagnosis (1) Alcohol dependence with withdrawal, uncomplicated Current Visit: Yes Status: Acute (2) Cannabis dependence Current Visit: No Status: Chronic (3) Cocaine dependence Current Visit: No Status: Acute (4) History of torn meniscus of left knee Current Visit: No Status: Acute (5) History of torn meniscus of right knee Current Visit: No Status: Acute (6) Opioid dependence on agonist therapy Current Visit: No Status: Acute (7) Nicotine dependence Current Visit: Yes Status: Chronic Qualifiers: Nicotine product type: cigarettes Substance use status: uncomplicated Qualified Code(s): F17.210 - Nicotine dependence, cigarettes, uncomplicated (8) Obesity Current Visit: Yes Status: Acute - AMA Did Patient Leave Against Medical Advice: Yes
[2017-09-03] MEDS ORDERED: GABAPENTIN 400 MG CAPSULE (FP) PO SCH (22:00)
[2017-09-03] MEDS ORDERED: chlordiazePOXIDE HCL 25 MG CAPSULE PO SCH (23:00)
[2017-09-04] MEDS ORDERED: METHADONE HCL 5 MG TABLET (FOR DETOX USE ONLY) PO SCH (06:00)
[2017-09-04] MEDS ORDERED: METHADONE PO SCH (06:00)
[2017-09-04] MEDS ORDERED: chlordiazePOXIDE 5 MG CAPSULE PO SCH (23:00)
[2017-09-05] MEDS ORDERED: chlordiazePOXIDE HCL 10 MG CAPSULE PO SCH (23:00)
== END 2017-09-03 19:20 | disposition left against medical advice (07) | DRG 770 ==
LOC: YASAS 14:56 → Y3N 17:45
PROVIDERS: ADMIT Internal Medicine; ATTEND Internal Medicine
PROC: HZ2ZZZZ Detoxification Services for Substance Abuse Treatment (ICD-10-PCS; principal; 2017-09-02)
DX: F11.20 Opioid dependence, uncomplicated (principal); F10.230 Alcohol dependence with withdrawal, uncomplicated; F14.20 Cocaine dependence, uncomplicated; F12.20 Cannabis dependence, uncomplicated; F17.210 Nicotine dependence, cigarettes, uncomplicated; F19.24 Other psychoactive substance dependence with psychoactive substance-induced mood disorder; F31.81 Bipolar II disorder; J45.909 Unspecified asthma, uncomplicated; E66.9 Obesity, unspecified; Z68.42 Body mass index [BMI] 45.0-49.9, adult; Z87.828 Personal history of other (healed) physical injury and trauma
CPT/HCPCS: 36415; 80053; 81003; 81015; 85027; 86593; 87389; 93005; 93010